=== PATIENT | male | born 1970 | race Caucasian/White ===

== ENCOUNTER 2016-10-21 08:45 | Emergency (ER) | payer SELFPAY ==
--- NOTE | ~2016-10-21 | ER ---
PATIENT'S NAME: CLAY HARDING [facility] AGE: 46 Y [address] ROOM: [place] [address] LOCATION: [facility] ADMIT DATE: 10/21/2016 ER/Outpatient Report DISCHARGE DATE: 10/21/2016 FAMILY PHYSICIAN: PHYSICIAN, ANDRADE ATTENDING PHYSICIAN: Sonny Middleton CHIEF COMPLAINT: Burning with urination. HISTORY OF PRESENT ILLNESS: The patient states that for the last few days he has had significant burning and pain with urination. It is described as located in the middle of the penis and slightly towards the end. He denies any unusual discharge, nothing has really made this better. He has a history of UTI. He states that he is sexually active with men and women and does participate in penetrative anal sex. He usually uses a condom but not every time. He denies any fevers or chills associated with this. He requests testing for gonorrhea/chlamydia and HIV in addition to other necessary testing. He has no other acute issues. PAST MEDICAL HISTORY: Documented on the record and reviewed by me. SOCIAL HISTORY: Documented on the record and reviewed by me. MEDICATIONS: Documented on the record and reviewed by me. ALLERGIES: DOCUMENTED ON THE RECORD AND REVIEWED BY ME. REVIEW OF SYSTEMS: All systems reviewed and negative except as noted in the HPI. PHYSICAL EXAMINATION: VITAL SIGNS: Blood pressure is 128/83, pulse is 92, respiratory rate is 14, temperature 98 degrees, and SpO2 is 97% on room air. Pain is rated 7/10. GENERAL: Age-appropriate male, in no obvious pain or distress, resting comfortably on the exam table. NEUROLOGIC: Awake, alert. GCS 15. No focal deficits or asymmetry on exam. HEENT: Normocephalic, atraumatic. Eyes are PERRL. Oropharynx is clear. NECK: Supple. Trachea is midline. CHEST/HEART: Regular rate and rhythm with no murmurs. LUNGS: Clear to auscultation bilaterally. No rhonchi, wheezes, or rales. ABDOMEN: Soft, nontender, and nondistended. No rebound or guarding. No masses. PATIENT'S NAME: CLAY HARDING [facility] AGE: 46 Y [address] ROOM: [place] [address] LOCATION: [facility] ADMIT DATE: 10/21/2016 ER/Outpatient Report DISCHARGE DATE: 10/21/2016 FAMILY PHYSICIAN: PHYSICIAN, NO ATTENDING PHYSICIAN: Sonny Middleton BACK: Nontender to palpation throughout. No CVA tenderness. : Normal male genitalia, circumcised. The testes are normal to palpation. No tenderness over the epididymis. There are no masses in the scrotum. No hernia is appreciated on exam. The penis does not have any purulent discharge appreciated. No masses or tenderness. RECTAL: The prostate is normal sized and minimally tender to palpation. Otherwise, normal exam. SKIN: Warm, dry, and intact. EXTREMITIES: Normal to inspection with no deformities or edema. DIAGNOSTIC DATA: No x-rays were obtained. Labs: Gonorrhea, chlamydia, urine PCR not detected. HIV is not detected. Urinalysis with 100 leukocytes, 25 blood with micro, 5-10 wbc's, 2-5 rbc's, rare epithelial cells, and few bacteria. IMPRESSION: Urinary tract infection with possible mild prostatitis. EMERGENCY DEPARTMENT COURSE: The patient was evaluated as above. Based on his presentation, there was concern for prostatitis, UTI, as well as STIs. STIs of the typical presentation are ruled out. We will treat him with ciprofloxacin for UTI. He should return if his symptoms worsen or he develops fevers. He should return if worse. His mild back pain is chronic and not consistent with Pyelonephritis. He does not require imaging today. Encourage minimization of narcotic use and use of acetaminophen in addition to ibuprofen for relief. All questions were answered. The patient was ultimately discharged in good condition. Of note, his emergency department stay was prolonged significantly related to a confusion with the lab regarding initiation of his gonorrhea and chlamydia testing. It would have been an undue cause for the patient to have him returned. He did not require any pain medication while in the emergency department. He was discharged in good condition. MD KINGSLEY ALONSO/adrienne /[id number] d: 10/21/168 t: 10/23/16 0825, OUTPATIENT REPORT
[2016-10-21 09:31] LABS: BILIRUBIN URINE NEGATIVE (NEGATIVE); BLOOD URINE 25 /UL (NEGATIVE); GLUCOSE URINE NEGATIVE (NEGATIVE); KETONE URINE NEGATIVE (NEGATIVE); LEUKOCYTES URINE 100 /UL (NEGATIVE); NITRITE URINE NEGATIVE (NEGATIVE); PROTEIN URINE NEGATIVE (NEGATIVE); SPEC GRAVITY URINE 1.005 (1.003-1.035); UROBILINOGEN URINE NORMAL (NORMAL)
[2016-10-21 09:32] LABS: COLOR URINE YELLOW (YELLOW); TURBIDITY URINE CLEAR (CLEAR)
[2016-10-21 09:43] LABS: BACTERIA URINE FEW (NEGATIVE); EPITHELIAL URINE RARE #/HPF (NEGATIVE); MUCUS URINE 1+ (NEGATIVE)
[2016-11-19] MEDS ORDERED: ZYRTEC10 MG PO (10:59)
== END 2016-10-21 12:38 | disposition disaster alternative care site (69) ==
LOC: GMED 08:45
PROVIDERS: Emergency Medicine
DX: N39.0 Urinary tract infection, site not specified (principal)

== ENCOUNTER 2016-10-28 07:45 | Emergency (ER) | payer SELFPAY ==
--- NOTE | ~2016-10-28 | ER ---
PATIENT'S NAME: MEHDI [facility] AGE: 46 Y [address] ROOM: [place] [address] LOCATION: [facility] ADMIT DATE: 10/28/2016 ER/Outpatient Report DISCHARGE DATE: 10/28/2016 FAMILY PHYSICIAN: , ANDRADE ATTENDING PHYSICIAN: Tao Bravo Time of Arrival: 0748 hours. Time of Evaluation: 0800 hours. CHIEF COMPLAINT: Rash. HISTORY OF PRESENT ILLNESS: The patient is a 46-year-old male who presents to the emergency department today with a chief complaint of rash. It is on his chin. He is concerned that it is a reaction to the Cipro which started about 7 days ago. He reports the rash on his chin started Friday evening. It is itchy type pain. He does report some fevers starting Friday. He does have frequent UTIs though his UTIs symptoms are gone now. He was treated for Cipro. Denies any nasal congestion. Does have mild cough. Denies any nausea or vomiting. Did have some loose stool, but no diarrhea or constipation. 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 PAST SURGICAL HISTORY: Carpal tunnel syndrome, elbow and right shoulder. SOCIAL HISTORY: The patient smokes a pack per day for greater than 36 years. Drinks 4-5 beers daily. Denies any illicit drug use. No IV drug use. ALLERGIES: PENICILLIN. MEDICATIONS: Please see list. [facility] REVIEW OF SYSTEMS: All systems are reviewed by myself and negative with the exception of those discussed in the HPI and past medical history. PATIENT'S NAME: MEHDI, [facility] AGE: 46 Y [address] ROOM: [place], [place] [address] LOCATION: ED ADMIT DATE: 10/28/2016 ER/Outpatient Report DISCHARGE DATE: 10/28/2016 FAMILY PHYSICIAN: PHYSICIAN, ANDRADE ATTENDING PHYSICIAN: Tao Bravo PHYSICAL EXAMINATION: VITAL SIGNS: Weight 64.4 kg, blood pressure 144/78, pulse 99, respiratory rate 16, temperature 101.6, and oxygen saturation 97% on room air. GENERAL: The patient is a 46-year-old male who appears of stated age, in no acute distress at this time. HEENT: Head: Normocephalic, atraumatic. Pupils are equal, round, and reactive to light and accommodation. Extraocular motions are intact. Nares are patent bilaterally. TMs are clear. Oropharynx is clear. NECK: Supple. There is no nuchal rigidity. CARDIOVASCULAR: Regular rate and rhythm. No murmurs, rubs, or gallops. LUNGS: Clear to auscultation bilaterally. No wheezes, rales, or rhonchi. ABDOMEN: Soft, nontender, and nondistended. No rebound, rigidity, or guarding. MUSCULOSKELETAL: The patient moves all 4 extremities. SKIN: The patient does have erythematous rash along the follicles of his coe on his chin. DIAGNOSTIC DATA: Labs and x-rays are obtained. CBC normal except for white blood cell count 3.7. Lactate is normal. Procalcitonin is normal. Urinalysis is negative. CMP is unremarkable. 2-view chest x-ray shows no acute process. Influenza is negative. IMPRESSION: 1. Rash, not otherwise specified. 2. Acute febrile illness. 3. Initial visit. EMERGENCY DEPARTMENT COURSE: The patient was brought back to the examination room. Seen and evaluated by myself. IV is established. The patient was given 1 L of normal saline, 1 g of Tylenol, and 600 mg of ibuprofen with improvement in the patient's symptoms. I have discussed the results with the patient. I have recommend a close followup with primary care doctor in 2-3 days for re-evaluation. I have discussed return to care instructions including worsening symptoms or any other concerns, to return to emergency department as soon as possible. The patient is agreeable without further questions. DISPOSITION: The patient discharged home in good condition. TAO BRAVO DO PATIENT'S NAME: CLAY HARDING [facility] AGE: 46 Y [address] ROOM: [place], [place] [address] LOCATION: ED ADMIT DATE: 10/28/2016 ER/Outpatient Report DISCHARGE DATE: 10/28/2016 FAMILY PHYSICIAN: PHYSICIAN, NO ATTENDING PHYSICIAN: Tao Bravo/adrienne /[id number] d: 10/28/16 1749 t: 10/29/16 0623, OUTPATIENT REPORT
[2016-10-28 08:21] LABS: BILIRUBIN URINE NEGATIVE (NEGATIVE); BLOOD URINE NEGATIVE /UL (NEGATIVE); COLOR URINE YELLOW (YELLOW); GLUCOSE URINE NEGATIVE (NEGATIVE); KETONE URINE NEGATIVE (NEGATIVE); LEUKOCYTES URINE NEGATIVE /UL (NEGATIVE); NITRITE URINE NEGATIVE (NEGATIVE); PROTEIN URINE NEGATIVE (NEGATIVE); SPEC GRAVITY URINE 1.015 (1.003-1.035); TURBIDITY URINE CLEAR (CLEAR); UROBILINOGEN URINE NORMAL (NORMAL)
[2016-10-28 08:40] LABS: BASOPHIL % 0.5 %; EOSINOPHIL % 0.3 %; HEMATOCRIT 44.7 % (37.0-53.0); HEMOGLOBIN 15.2 g/dL (12.0-17.0); IMMATURE GRANULOCYTE % 0.3 %; LYMPHOCYTE # 1.3 K/uL (0.8-4.0); LYMPHOCYTE % 36.2 %; MCH 31.7 pg (27.0-34.0); MCV 93.3 fl (83.0-98.0); MONOCYTE # 0.3 K/uL (0.0-1.0); MONOCYTE % 8.8 %; MPV 9.1 fl (9.4-12.4); NEUTROPHIL % 53.9 %; NRBC % 0 /100WBC (0-0.00); PLATELET COUNT 202 K/uL (150-450); RBC 4.79 M/uL (4.00-6.00); WBC 3.7 K/uL (4.0-11.0)
[2016-10-28 09:03] LABS: ALBUMIN 3.7 gm/dL (3.5-5.0); ALK PHOS 56 IU/L (33-138); ALT 40 IU/L (12-78); BLOOD UREA NITROGEN 6 mg/dL (6-24); CALCIUM 8.3 mg/dL (8.5-10.5); CHLORIDE 100 mMol/L (96-110); CO2 24 mMol/L (22-32); CREATININE 0.9 mg/dL (0.6-1.3); ESTIMATED GFR (MDRD EQUATION) > 60; SODIUM 134 mMol/L (135-145); TOTAL BILIRUBIN 0.5 mg/dL (0.0-1.5); TOTAL PROTEIN 6.8 g/dL (6.0-8.4)
[2016-10-28 09:05] LABS: ANION GAP 14.3 (10.0-19.0); AST 50 IU/L (10-40); POTASSIUM 4.3 mMol/L (3.7-5.1)
[2016-11-19] MEDS ORDERED: ZYRTEC10 MG PO (10:59)
== END 2016-10-28 10:05 | disposition disaster alternative care site (69) ==
LOC: GMED 07:45
PROVIDERS: Emergency Medicine
DX: R21 Rash and other nonspecific skin eruption (principal); R50.9 Fever, unspecified; F17.210 Nicotine dependence, cigarettes, uncomplicated; G56.01 Carpal tunnel syndrome, right upper limb; Z88.0 Allergy status to penicillin; Z87.440 Personal history of urinary (tract) infections; Z98.890 Other specified postprocedural states
CPT/HCPCS: J7030

== ENCOUNTER 2016-11-04 17:10 | Emergency (ER) | payer SELFPAY ==
--- NOTE | ~2016-11-04 | ER ---
PATIENT'S NAME: MEHDI [facility] AGE: 46 Y [address] ROOM: [place] [address] LOCATION: [facility] ADMIT DATE: 11/04/2016 ER/Outpatient Report DISCHARGE DATE: 11/04/2016 FAMILY PHYSICIAN: PHYSICIAN, NO ATTENDING PHYSICIAN: Sonny Middleton Time of Arrival: 1715 hours. Time of Exam: 1730 hours. CHIEF COMPLAINT: Back pain. HISTORY OF PRESENT ILLNESS: The patient states he is having pain right in the middle of his back, it is sharp, constant, rates it at 9/10. States it began on Friday, October 29. Denies any trauma, has not fallen, has not had any injury. ALLERGIES: PENICILLIN. CURRENT MEDICATIONS: 1. Doxycycline for an infection on his face. 2. Hydrocodone for pain. He states he has not had any of the hydrocodone today. 3. Did take some Aleve this morning. He says the pain is not so bad in the morning, but as the day progresses, the pain increases. PAST MEDICAL HISTORY: Bulging disk in his neck. PAST SURGERIES: Fusion of the neck, C3-C4 done by Dr. Bailon 2 years ago, right shoulder surgery x3, and bilateral feet surgery. SOCIAL HISTORY: He smokes a pack per day and has for the last 36 years. Denies use of drugs. Does drink alcohol on a daily basis. Reports he has at least 2 or 3 beers. REVIEW OF SYSTEMS: All negative other than those mentioned in the HPI. PHYSICAL EXAMINATION: VITAL SIGNS: He weighed 63.9 kg, blood pressure is 119/80, pulse of 82, respirations 16, temperature of 97.4, and O2 saturation was 98% on room air. PATIENT'S NAME: MEHDI, [facility] AGE: 46 Y [address] ROOM: [place], [place] [address] LOCATION: [facility] ADMIT DATE: 11/04/2016 ER/Outpatient Report DISCHARGE DATE: 11/04/2016 FAMILY PHYSICIAN: PHYSICIAN, NO ATTENDING PHYSICIAN: Sonny Middleton GENERAL: He is awake, alert, and oriented x4. SKIN: [place], warm, and dry. LUNGS: Respirations are even and nonlabored. Lung sounds are clear throughout. HEART: Regular rate and rhythm. EMERGENCY DEPARTMENT COURSE: He does have a rash to the chin area. No drainage from the area noted. He is tender to palpate along the paraspinal of the thoracic area, more tender on the left than the right. He was given [place] 5/[address] of the thoracic spine was completed. Radiologist reports it is negative. He states the [place] helped some with the pain, but it is continuing. He is concerned that it could be related to his kidney, as he was recently diagnosed with a kidney infection. He was given Valium 2 mg p.o. for muscle spasms and a UA was obtained. UA is negative for leukocytes, nitrites, glucose, ketones, or blood. IMPRESSION: 1. Back pain. 2. Muscle spasms. PLAN: The patient be discharged home. Rest. Ice or heat to the back. Continue the ibuprofen as needed for pain. Prescription was written for Flexeril. He was given the names of various providers here in town to follow up with if the pain persists. Discussed with him that he may need to have some physical therapy to that area. He verbalized understanding. AFTAB SALGADO APRN FOR MD DEAN ALONSO/adrienne /[id number] d: 11/05/16 0207 t: 11/19/16 0803, OUTPATIENT REPORT
[2016-11-04 19:25] LABS: BILIRUBIN URINE NEGATIVE (NEGATIVE); BLOOD URINE NEGATIVE /UL (NEGATIVE); GLUCOSE URINE NEGATIVE (NEGATIVE); KETONE URINE NEGATIVE (NEGATIVE); LEUKOCYTES URINE NEGATIVE /UL (NEGATIVE); NITRITE URINE NEGATIVE (NEGATIVE); PROTEIN URINE NEGATIVE (NEGATIVE); SPEC GRAVITY URINE 1.005 (1.003-1.035); UROBILINOGEN URINE NORMAL (NORMAL)
[2016-11-04 19:26] LABS: COLOR URINE YELLOW (YELLOW); TURBIDITY URINE CLEAR (CLEAR)
[2016-11-19] MEDS ORDERED: ZYRTEC10 MG PO (10:59)
== END 2016-11-04 19:33 | disposition disaster alternative care site (69) ==
LOC: GMED 17:10
PROVIDERS: Nurse Practitioner Family
DX: M62.830 Muscle spasm of back (principal); F17.210 Nicotine dependence, cigarettes, uncomplicated; Z88.0 Allergy status to penicillin; Z98.1 Arthrodesis status

== ENCOUNTER → 2016-11-21 | Day surgery (SDC) | payer SELFPAY ==
[~2016-11-21] VITALS: Ht 172.7 cm; Wt 56.5 kg
[~2016-11-21] MED LIST: ADVIL200 MG PO; LEVAQUIN750 MG PO; NORCO 10-325 T1 EACH PO; ZYRTEC10 MG PO
== END | disposition disaster alternative care site (69) ==
LOC: GPOC 11-19 11:00 → GEND 07:21 → GPOC 11:00
PROC: 0DJD8ZZ Inspection of Lower Intestinal Tract, Via Natural or Artificial Opening Endoscopic (ICD-10-PCS; principal; 2016-11-21)
DX: Z09 Encounter for follow-up examination after completed treatment for conditions other than malignant neoplasm (principal); Z86.010 Personal history of colon polyps; F17.210 Nicotine dependence, cigarettes, uncomplicated; Z98.890 Other specified postprocedural states; Z79.899 Other long term (current) drug therapy
CPT/HCPCS: J2001; J7030

== ENCOUNTER 2017-02-27 11:20 | Inpatient (IN) | payer SELFPAY ==
[~2017-02-27] VITALS: Ht 172.7 cm; Wt 60.0 kg
--- NOTE | ~2017-02-27 | DS ---
PATIENT'S NAME: CLAY HARDING [facility] AGE: 47 Y [address] ROOM: [place] [id number] LOCATION: [facility] ADMIT DATE: 03/03/2017 Discharge Summary DISCHARGE DATE: 03/04/2017 FAMILY PHYSICIAN: PHYSICIAN, NO ATTENDING PHYSICIAN: Ad Das PRIMARY DIAGNOSES: 1. Multifocal cavitary pneumonia. 2. Intractable cough. 3. Tobaccoism. 4. Unexplained weight loss. 5. Mild protein calorie malnutrition. OPERATIONS AND PROCEDURES: CT scan of the chest was performed on 02/27/2017 demonstrating multifocal consolidations with an area of cavitation. HISTORY OF PRESENTING ILLNESS/REASON FOR ADMISSION: Please refer to the H and P dictated on 02/27/2017. HOSPITAL COURSE: The patient was admitted to hospital as noted above with a presumptive diagnosis of multifocal pneumonia with a cavitary chest lesion. Primary considerations were infectious and there was a concern for tuberculosis. He was placed in isolation. Pulmonology was consulted. He received aggressive supportive cares. He was not oxygen requiring. He was placed initially on azithromycin and ceftriaxone, but this was switched to levofloxacin and vancomycin. His sputum cultures revealed normal respiratory dominic and AFB smear was negative twice. Additionally, QuantiFERON tuberculosis testing was negative with TB antigen value of 0.02. Based on his medical history, limited risk factors, and negative TB testing, it was felt that this was not likely tuberculosis and he was taken out of isolation. His clinical condition remained stable and his radiographic imaging studies improved in appearance. He was continued on antibiotic therapy. By the end of the 5th day of his hospital stay it was felt he would be stable enough for discharge to home on oral antibiotic therapy. DISCHARGE INSTRUCTIONS: DIET: Regular as tolerated. ACTIVITY: As tolerated. No smoking. MEDICATIONS: 1. Levofloxacin 750 mg p.o. daily x10 more days. PATIENT'S NAME: [facility] AGE: 47 Y [address] ROOM: [place] [address] LOCATION: [facility] ADMIT DATE: 03/03/2017 Discharge Summary DISCHARGE DATE: 03/04/2017 FAMILY PHYSICIAN: PHYSICIAN, NO ATTENDING PHYSICIAN: Ad Das 2. Zyrtec 10 mg p.o. q.h.s. 3. Ibuprofen 800 mg p.o. q.6 hours p.r.n. pain or fever. 4. [place] 10/325 one tablet p.o. q.6 hours p.r.n. pain. FOLLOWUP: [facility] 1 [facility]. He will follow up with Dr. Prieto in [address] scan of the chest in 4 weeks. CONDITION ON DISCHARGE: Fair. TIME SPENT: Total time spent on discharge process 45 minutes. MD BRIAN MIXON/adrienne /[id number] d: 03/05/17 0357 t: 03/08/17 0832, DISCHARGE SUMMARY
--- NOTE | ~2017-02-27 | CON ---
PATIENT'S NAME: [facility] AGE: 47 Y [address] ROOM: [place] [address] LOCATION: [facility] ADMIT DATE: 02/27/2017 Consultation DISCHARGE DATE: FAMILY PHYSICIAN: PHYSICIAN, NO ATTENDING PHYSICIAN: MARK FLOWER DATE OF CONSULTATION: 02/27/2017 REFERRING PHYSICIAN: Tim Castillo MD HISTORY OF PRESENT ILLNESS: This is a 47-year-old gentleman with a past medical history significant for smoking, who presented to the emergency department with cough which has been going on for 2 weeks, productive in nature with greenish sputum. Progressive in nature, associated with some nausea, some chest pain with deep inspiration, mild shortness of breath. Also complained of fever, chills a couple occasions. On further inquiry, he does endorse that he has lost 10 pounds in the last 4 weeks. He denied any headaches, hemoptysis, pleurisy. REVIEW OF SYSTEMS: Negative other than mentioned in history of presenting illness. ALLERGIES: THE PATIENT IS ALLERGIC TO PENICILLIN AND GETS HIVES. PAST MEDICAL HISTORY: None. PAST SURGICAL HISTORY: None. MEDICATIONS: None. FAMILY HISTORY: Significant for heart disease in his mother. Multiple members have different kinds of cancers including pancreatic cancer as well as bone cancer. SOCIAL HISTORY: The patient is a long-time smoker, 35 pack year. No alcohol or drug abuse. Lives in [place], currently unemployed. PHYSICAL EXAMINATION: GENERAL: Upon initial evaluation, the patient is sitting in bed, comfortable, does not appear in acute distress. VITAL SIGNS: Heart rate of 100, blood pressure are 145/75, saturation 96 on PATIENT'S NAME: [facility] AGE: 47 Y [address] ROOM: [place] [id number] LOCATION: [facility] ADMIT DATE: 02/27/2017 Consultation DISCHARGE DATE: FAMILY PHYSICIAN: PHYSICIAN, NO ATTENDING PHYSICIAN: MARK FLOWER room air. HEENT: Eyes are nonicteric. Pupils equal, reactive to light and accommodation. Normocephalic, atraumatic. Wet mucous membranes. NECK: Supple. No lymphadenopathy and no jugular venous distention. LUNGS: Good bilateral air entry. No rales or rhonchi. HEART: S1, S2. No murmurs, rubs, or gallops. ABDOMEN: Soft, nontender, no palpable organs. LOWER EXTREMITIES: No edema, clubbing, or cyanosis. NEUROLOGIC: Cranial nerves 2 through 12 are intact. No motor or sensory deficit noted. IMAGING DATA: Chest x-ray done in the emergency department showed left-sided patchy infiltrate. CT scan showed multifocal pneumonia with cavitary lesion. LABORATORY DATA: Sodium is 133 and lactic acid is 2.5. IMPRESSION: 1. Multifocal pneumonia with cavitary lesion. This could be infectious or this could be malignant given the patient's symptoms of cough and fever. This could be also malignant but this is also most likely infectious at the current point. We will cover the antibiotic with azithromycin, ceftriaxone, and possible Zyvox. 2. The patient was put on isolation for some odd reason suspected for tuberculosis. We will await the 3 negative AFBs. The patient will require bronchoscopy. We will transfer to CT-guided biopsy if there is no improvement. 3. If the patient improves, then we will repeat CT scan in 6 weeks for radiographical improvement. Thank you for allowing me to participate in the care of this patient. MD ORIANA SHABAZZ/adrienne /[id number] d: 03/02/17 1851 t: 04/07/17908, CONSULTATION REPORT
--- NOTE | ~2017-02-27 | HP ---
PATIENT'S NAME: MEHDI [facility] AGE: 47 Y [address] ROOM: [place] [address] LOCATION: [facility] ADMIT DATE: 02/27/2017 History & Physical DISCHARGE DATE: FAMILY PHYSICIAN: PHYSICIAN, NO ATTENDING PHYSICIAN: MARK FLOWER DATE OF SERVICE: CHIEF COMPLAINT: Fever, cough, and weight loss. HISTORY OF PRESENT ILLNESS: A 47-year-old gentleman, very pleasant, with a past medical history only significant for [id number] smoking history. He presented to the emergency department today with cough, which has been going on for 2 weeks now, productive in nature with greenish sputum, progressive in nature, associated with some nausea and some chest pain with deep inspiration, mild shortness of breath, also accompanied by fever and chills on couple of occasions. On further inquiry, he does endorse that he has lost 10 pounds in the last 4 weeks. He denied any headache, but he said he has trouble with his eyes for a long time now. He denied any trouble swallowing, any palpitation, abdominal pain, any burning on urination, any extremity swelling, any constipation, any diarrhea, any musculoskeletal tenderness, joint pain, or any weakness. REVIEW OF SYSTEMS: All other systems reviewed and were negative except what is mentioned in the HPI. ALLERGIES: THE PATIENT IS ALLERGIC TO PENICILLIN AND GETS HIVES AND ALSO HAS A BUNCH OF SEASONAL ALLERGIES WELL. PAST MEDICAL HISTORY: None. PAST SURGICAL HISTORY: None. MEDICATIONS: None. FAMILY HISTORY: Family history is significant for heart disease in mother. Multiple family members have different kind of cancers including pancreatic cancer as well as bone cancer. PATIENT'S NAME: MEHDI [facility] AGE: 47 Y [address] ROOM: [place] [address] LOCATION: [facility] ADMIT DATE: 02/27/2017 History & Physical DISCHARGE DATE: FAMILY PHYSICIAN: PHYSICIAN, NO ATTENDING PHYSICIAN: MARK FLOWER SOCIAL HISTORY: The patient is a long time smoker, [id number] smoking history. No alcohol or drug abuse. Lives in [place], currently unemployed. PHYSICAL EXAMINATION: VITAL SIGNS: Heart rate of 93, blood pressure 143/68, saturating 96% on room air, respiratory rate of 20. GENERAL: No acute distress. Alert and oriented x3. HEENT: Head: Atraumatic, normocephalic. Eyes: Nonicteric. No pallor. Oropharynx: Dry mucous membranes. CARDIOVASCULAR: S1, S2. No murmurs, gallops, or rubs. LUNGS: Left-sided scattered crackles, equal air entry bilaterally. ABDOMEN: Soft, nontender, nondistended. Bowel sounds present. EXTREMITIES: No clubbing, cyanosis, or edema. NEUROLOGIC: Cranial nerves 2 through 12 intact. No motor or sensory deficit noted. MUSCULOSKELETAL: No muscle tenderness noted. IMAGING DATA: Chest x-ray done in the emergency department showed a left-sided patchy infiltrate. CT scan showed multifocal PNa with cavitary lesion. LABORATORY DATA: Lab work was only remarkable for sodium of 133 and lactic acid level of 2.1. ASSESSMENT AND PLAN: 1. Multifocal cavitary Pneumonia. 2. Hyponatremia. 3. Tobaccoism. We are going to admit this patient for observation. We will start intravenous fluid resuscitation and antibiotics for community-acquired pneumonia. We will use azithromycin and ceftriaxone. Sputum Gram stain and culture and blood cultures. Symptomatic control for cough, DuoNeb, and we will monitor his progress.AFP testing for TB and air borne precautions. Given his long-standing smoking history, recent weight loss, cough, as well as family history significant for cancer, we are going to get a CAT scan of the chest without contrast to look for any malignant etiology. I discussed the case with Dr. Valdez, and he agrees to do a CT of the chest without contrast. We will use deep venous thrombosis prophylaxis with Lovenox. Activity as tolerated. Diet, regular diet. PATIENT'S NAME: CLAY HARDING [facility] AGE: 47 Y [address] ROOM: [place] [address] LOCATION: [facility] ADMIT DATE: 02/27/2017 History & Physical DISCHARGE DATE: FAMILY PHYSICIAN: PHYSICIAN, NO ATTENDING PHYSICIAN: MARK FLOWER MD YOHANA JORDAN/adrienne /[id number] D: [id number] T: [id number] HISTORY & PHYSICAL
--- NOTE | ~2017-02-27 | ER ---
PATIENT'S NAME: CLAY HARDING [facility] AGE: 47 Y [address] ROOM: [place] [id number] LOCATION: [facility] ADMIT DATE: 02/27/2017 ER/Outpatient Report DISCHARGE DATE: FAMILY PHYSICIAN: , ANDRADE ATTENDING PHYSICIAN: MARK DAS Time of Arrival: 1120 hours. Time of Evaluation/Seen: 1137 hours. IDENTIFICATION: A 47-year-old male. CHIEF COMPLAINT: "I can't stop coughing." HISTORY OF PRESENT ILLNESS: The patient said four weeks ago he developed a cough productive of purulent sputum, has been running fevers off and on all four weeks. T-max was 103 on February 25. He has had some shortness of breath. Pain with cough. No ill contacts. He has had weight loss over the past 4 to 6 weeks with decreased appetite, but he is unable to tell me how much weight loss. PAST MEDICAL HISTORY: ALLERGIES: PENICILLIN, CAUSES HIVES. HE STATES HE DOES NOT TOLERATE OTHER ANTIBIOTICS VERY WELL. CURRENT MEDICATIONS: Denies. MEDICAL PROBLEMS: He has had walking pneumonia about five years ago. He has a history of COPD. He has had prior right shoulder surgery x3. Neck fusion. Bilateral carpal tunnel surgery. Bilateral ulnar nerve release. SOCIAL HISTORY: The patient lives in [place]. He is unemployed. Tobacco use, half pack per day. Alcohol use, occasional. Drug use, denies. [place]. REVIEW OF SYSTEMS: All systems reviewed and as noted in the HPI. Otherwise, negative. FAMILY HISTORY: PATIENT'S NAME: CLAY HARDING [facility] AGE: 47 Y [address] ROOM: [address] [address] LOCATION: [facility] ADMIT DATE: 02/27/2017 ER/Outpatient Report DISCHARGE DATE: FAMILY PHYSICIAN: PHYSICIAN, ANDRADE ATTENDING PHYSICIAN: MARK DAS A Father with prostate cancer. Grandmother with pancreatic cancer. PHYSICAL EXAMINATION: VITAL SIGNS: Weight 60 kg. Blood pressure 143/83, pulse 93, respiratory rate 18, temperature 99.5, and saturations 96% on room air. The patient's weight was noted to be 63.9 kg on November 04 which will be a weight loss of 8.5 pounds. HEENT: Head; normocephalic and atraumatic. Ears; TMs translucent in both ears. Nose; mucosa pink. No lesions or drainage. No sinus tenderness. Mouth; no lesions. Pharynx, benign. NECK: Supple. No lymphadenopathy. No nuchal rigidity. LUNGS: Clear to auscultation. No wheezes. He does have some coarse breath sounds in the left base. HEART: Regular rate and rhythm. No murmur, rub, or gallop. ABDOMEN: Bowel sounds present. Soft, nondistended. No hepatosplenomegaly. No palpable masses. Nontender. SKIN: [place], warm, and dry. No lesions or rashes noted. NEUROLOGIC: The patient is alert and oriented x4. Cranial nerves 2 through 12 grossly intact. Motor strength 5/5 throughout. Sensation is intact to light touch. No lower extremity edema. LABORATORY DATA: Procalcitonin less than 0.05. Hemoglobin 14.4, hematocrit 40.0, platelets 387,000, white count 9.6, and normal differential. Lactate elevated at 2.1. Sodium 133, potassium 4.2, chloride 101, CO2 of 24, BUN 4, creatinine 0.7, and blood sugar 97. Liver enzymes normal. Chest x-ray, two view, patchy parenchymal opacity in mid and lower portions of the left upper lobe consistent with infiltrate and atelectasis. IMPRESSION AND PLAN: Pneumonia. 1. Plan: The patient has some mild tachycardia and an elevated lactate. Blood cultures have been drawn and those results are pending. The patient will be admitted for IV antibiotics. Pneumonia pathway. 2. Weight loss over one month. The patient has a significant smoking history and will need a CT scan of his chest. Dr. Das evaluated the patient in the emergency room and proceeded with hospitalization. SUSHMA REVELES MD CAR/modl PATIENT'S NAME: CLAY HARDING [facility] AGE: 47 Y [address] ROOM: [address] [address] LOCATION: [facility] ADMIT DATE: 02/27/2017 ER/Outpatient Report DISCHARGE DATE: FAMILY PHYSICIAN: ANDRADE KUMAR ATTENDING PHYSICIAN: MARK DAS /[id number] d: 02/27/[id number] t: 02/28/1729, OUTPATIENT REPORT
[~2017-02-27 11:20] MED LIST changes: -ADVIL200 MG PO; -LEVAQUIN750 MG PO; -NORCO 10-325 T1 EACH PO
[2017-02-27 12:09] LABS: BASOPHIL # 0.1 K/uL (0.0-0.2); BASOPHIL % 0.5 %; EOSINOPHIL # 0.4 K/uL (0.0-0.5); EOSINOPHIL % 4.4 %; HEMOGLOBIN 14.4 g/dL (12.0-17.0); IMMATURE GRANULOCYTE % 0.2 %; LYMPHOCYTE # 1.9 K/uL (0.8-4.0); LYMPHOCYTE % 19.5 %; MCH 32.7 pg (27.0-34.0); MCV 90.9 fl (83.0-98.0); MONOCYTE # 0.8 K/uL (0.0-1.0); MONOCYTE % 8.5 %; MPV 8.7 fl (9.4-12.4); NEUTROPHIL # (ANC) 6.5 K/uL (1.4-9.0); NEUTROPHIL % 66.9 %; NRBC % 0 /100WBC (0-0.00); PLATELET COUNT 387 K/uL (150-450); RDW-CV 12.1 % (11.9-14.6); WBC 9.6 K/uL (4.0-11.0)
[2017-02-27 12:35] LABS: ALBUMIN 3.1 gm/dL (3.5-5.0); ALK PHOS 52 IU/L (33-138); ALT 14 IU/L (12-78); ANION GAP 12.2 (10.0-19.0); AST 13 IU/L (10-40); BLOOD UREA NITROGEN 4 mg/dL (6-24); CALCIUM 8.4 mg/dL (8.5-10.5); CHLORIDE 101 mMol/L (96-110); CO2 24 mMol/L (22-32); CREATININE 0.7 mg/dL (0.6-1.3); ESTIMATED GFR (MDRD EQUATION) > 60; POTASSIUM 4.2 mMol/L (3.7-5.1); SODIUM 133 mMol/L (135-145); TOTAL BILIRUBIN 0.4 mg/dL (0.0-1.5)
[2017-02-27] MEDS ORDERED: ADVIL200 MG PO (14:13)
[2017-02-27] MEDS ORDERED: NORCO 10-325 T1 EACH PO (14:21)
--- NOTE | 2017-02-27 15:44 | NUR ---
Significant Event:PT ADMITTED TO 3200 FOR PNEUMINIA. A/O AND AD MYRA IN ROOM. DENIES PAIN. STATES HAS HX OF BACK PAIN. HX OF 1/2 DEBBY SMOKER/DAY. ALLERGY TO PENICILLIN. NO SKIN ISSUES. LUNG SOUNDS COARSE/DIMINISHED IN BASES. EXPIRATORY WHEEZES. SOB WITH ACTIVITY, DYSPNEA. 20G RFA STARTED IN ER. BLOOD CULTURES X2 DONE. CBC DONE. NEED UA AND SPUTUM CULTURE. FULL CODE. Follow up:
[2017-02-28 04:49] LABS: BASOPHIL % 0.5 %; EOSINOPHIL # 0.7 K/uL (0.0-0.5); EOSINOPHIL % 8.9 %; HEMATOCRIT 35.7 % (37.0-53.0); HEMOGLOBIN 12.3 g/dL (12.0-17.0); IMMATURE GRANULOCYTE % 0.3 %; LYMPHOCYTE # 2.2 K/uL (0.8-4.0); LYMPHOCYTE % 29.3 %; MCH 31.8 pg (27.0-34.0); MCHC 34.5 gm/dL (32.0-36.5); MCV 92.2 fl (83.0-98.0); MONOCYTE # 0.6 K/uL (0.0-1.0); MPV 8.9 fl (9.4-12.4); NRBC % 0 /100WBC (0-0.00); RBC 3.87 M/uL (4.00-6.00); RDW-CV 12.4 % (11.9-14.6); WBC 7.5 K/uL (4.0-11.0)
[2017-02-28 04:50] LABS: PLATELET COUNT 179 K/uL (150-450)
[2017-02-28 05:09] LABS: ANION GAP 11.4 (10.0-19.0); BLOOD UREA NITROGEN 6 mg/dL (6-24); CALCIUM 7.9 mg/dL (8.5-10.5); CHLORIDE 107 mMol/L (96-110); CO2 25 mMol/L (22-32); CREATININE 0.5 mg/dL (0.6-1.3); ESTIMATED GFR (MDRD EQUATION) > 60; SODIUM 139 mMol/L (135-145)
[2017-02-28 05:11] LABS: POTASSIUM 4.4 mMol/L (3.7-5.1)
--- NOTE | 2017-02-28 06:04 | NUR ---
Significant Event: Follow up:PATIENT A/OX3, AMBULATES TO BATHROOM, PLACED ON AIRBORNE PROCAUTIONS, DID NOT COMPLAIN OF PAIN, GOOD OUTPUT, V/S STABLE
--- NOTE | 2017-02-28 16:54 | NUR ---
Significant Event:Is A/O.IV in Rt.forearm.Is in isolation till rule out TB is done.Has freq NPC.Afebrile.Getting IV antibiotics.Does have a bit of sore throat but more pain in epigastric area when swallowing.He says this has happened before.States feels like stuff gets stuck & won't go down.Has been up in room by self. Follow up:
--- NOTE | 2017-02-28 17:00 | NUR ---
Met with patient via virtual nurse set up due to him being in isolation. Introduced myself and explained my role with the CM department. Patient does not have any insurance. He also does not have a family doctor. He utilizes the [facility] when he needs medical care. He completed a financial assistance application when he was here back in October. He states that he will need assistance getting medications if he is discharged with meds due to not having any funds. I let him know that at this time we are not sure what he will need for discharge meds so we will address this once we know more about discharge. I spoke to Danica in financial assistance and she states that the application he completed in October is still good through the month of February so he placed a hold on his account. I also spoke to Ursula with [employer] and she states that she talked to the patient in October and since he did not have a disabling condition at that time he did not qualify for disability or Medicaid. She will re-look at his case once we have the cultures back and determine if this is related to TB. No other needs at this time.
--- NOTE | 2017-02-28 17:12 | NUR ---
Significant Event:Is A/O.In isolation till TB ruled out.Has freq NPC.IV in Rt.forearm.Is afebrile.Getting IV antibiotics.Getting consult from bee producer.Also having HIV screening done.Slight sore throat but more discomfort in epigastric area.State it hurts,like stuff gets stuck there & won't go down.He states this has happened before to him.Pleasant.But not happy being here & in isolation. Follow up:
--- NOTE | 2017-03-01 04:40 | NUR ---
Significant Event: Patient is alert and oriented x 3. VSS on room air. Up ad lianne. Left forearm IV with LR running at 125 ml/hr. On intermittent IV antibiotics. In airborne precautions. Need sputum culture this am. Denies any pain. Patient is pleasant and cooperative with cares. Follow up:
--- NOTE | 2017-03-01 16:33 | NUR ---
A&O. IND. NO C/O PAIN. SBP 100'S. HR 60'S. RA. AFEBRILE. STRONG NON-PRODUCTIVE COUGH LS CLEAR. VD PER BR. NO BM TODAY. NEED SPUTUM SMAPLES X2! INT ATBX. CONT PAPR ISO R/O TB. R FA INFILTRATE TODAY, NEW IV TO L FA 150 LR. BRONC AFTER SPUTUM CULTURES?
--- NOTE | 2017-03-02 02:59 | NUR ---
SIGNIFICANT EVENT: Pt alert & oriented. Negative airflow/airborn precautions room d/t rule out TB - need sputum cultures x3. New order for q2H prn albuterol to help loosen mucus in lungs. VSS on RA. Independent in room. Regular diet. PIV to L) FA infusing LR at 150 with intermittent Vancomycin. Pleasant and cooperative with cares.
--- NOTE | 2017-03-02 15:27 | NUR ---
Significant Event: pt alert and oriented. cont in contact isolation for possible tb. sputum recieved and sent to lab this am. still need 1 more. up ad lianne in the room. iv fluids cont at 175 per hour. iv vanco and levaquin. will probably have a biospy sometime this week. Follow up:
--- NOTE | 2017-03-03 03:14 | NUR ---
SIGNIFICANT EVENT: Pt alert & oriented. Independent in room. Airborn isolation precautions - rule out TB. Need 2 more sputum specimens - need to be obtained at least 24 hours apart - obtain after 1000. VSS on RA. 6 mod vds, no BM this shift. Regular diet. Pleasant and cooperative with cares.
[2017-03-03 10:57] LABS: CREATININE 0.7 mg/dL (0.6-1.3); ESTIMATED GFR (MDRD EQUATION) > 60
--- NOTE | 2017-03-03 15:30 | NUR ---
Significant Event: Pt denies pain. Up ad lianne in room. 2nd AFB sputum culture sent and was negative, removed from isolation at [address] Prieto. VS stable. Follow up:
--- NOTE | 2017-03-04 04:55 | NUR ---
SIGNIFICANT EVENT: Pt is alert/oriented. VSS on RA. Regular diet. Independent in room. PIV to L)FA infusing LR and intermittent IV antibiotics. Plan is to DC home today. Pleasant and cooperative with cares.
[2017-03-04] MEDS ORDERED: LEVAQUIN750 MG PO (12:26)
--- NOTE | 2017-03-04 14:04 | NUR ---
Paul Stuart APRN called with with concerns that patient is going to need to be on Levaquin 750mg q day for 9 days and he does not have any insurance. I called [facility] and they informed me that this dose will cost him just under $20. I informed Paul Stuart and patient of this. Patient states that he will be able to cover the $20 cost for this medication. Instructed him to take the script to [facility] when he discharges to get this filled. No other discharge needs at this time.
--- NOTE | 2017-03-04 14:38 | NUR ---
Significant Event: Pt denies pain. Up ad lianne. Dc to home at 1301, states understanding of dc instructions. Pt belongings sent with pt. Follow up:
--- NOTE | 2017-03-04 18:35 | NUR ---
DISCHARGE: D: ORDERS RECEIVED FOR THE PATIENT TO BE DISCHARGED TO HOME TODAY. I: DISMISSAL INSTRUCTIONS WERE PREPARED AND REVIEWED WITH THE PATIENT VIRTUALLY. THE FOLLOWING INFORMATION WAS DISCUSSED INCLUDING [employer] TEACHING SHEETS PROVIDED: WHEN YOU HAVE PNEUMONIA, TREATING PNEUMONIA, PREVENTING PNEUMONIA, KICKING THE SMOKING HABIT, PLANNING TO QUIT SMOKING, LEVOQUIN AND CT SCAN INFORMATION FOR HIS CT OF CHEST IN 4 WEEKS. REVIEWED HIS NEW PRESCRIPTIONS AND FOLLOW UP APPOINTMENT. R: THE PATIENT VERBALIZED UNDERSTANDING OF THE DISMISSAL EDUCATION AT THE TIME OF TEACHING WITH NO FURTHER QUESTIONS. P: THE ABOVE INFORMATION WAS SHARED WITH THE PRIMARY NURSE AND THE CHARGE NURSE THAT THE PATIENT DISMISSAL EDUCATION WAS COMPLETED. THE PATIENT IS READY FOR DISCHARGE TO THE [facility] AND AMBULATED WITH NURSING STAFF.
== END 2017-03-04 13:00 | disposition disaster alternative care site (69) | DRG 194 ==
LOC: GMED 11:20 → GMSU 13:35
PROVIDERS: Family Medicine; Internal Medicine; ADMIT Internal Medicine
DX: J18.9 Pneumonia, unspecified organism (principal); E87.1 Hypo-osmolality and hyponatremia; E44.1 Mild protein-calorie malnutrition; F17.210 Nicotine dependence, cigarettes, uncomplicated; R63.4 Abnormal weight loss; R13.10 Dysphagia, unspecified; Z88.0 Allergy status to penicillin
CPT/HCPCS: G0378; J0696; J1650; J1956; J3370; J7050; J7120

== ENCOUNTER → 2017-04-03 | Outpatient (CLI) | payer SELFPAY ==
[~2017-04-03] MED LIST changes: +ADVIL200 MG PO; +LEVAQUIN750 MG PO; +NORCO 10-325 T1 EACH PO
== END | disposition disaster alternative care site (69) ==
LOC: GRAD 12:34
DX: J18.9 Pneumonia, unspecified organism (principal); R05 Cough; R91.8 Other nonspecific abnormal finding of lung field